=== PATIENT | female | born 1965 | race Caucasian/White ===

== ENCOUNTER 2017-08-09 18:09 | Emergency (ER) | payer OTHER ==
[~2017-08-09] VITALS: Ht 157.5 cm; Wt 76.4 kg
[~2017-08-09 18:09] MED LIST: ACET-8386 PO; CIPR500T4 PO; FOLI5CAP PO; METR500S14 PO; SULF500T6 PO
[2017-08-09 18:13] VITALS: BP 122/89
--- NOTE | 2017-08-09 19:44 | NUR ---
PT TAKEN TO OVERFLOW CHAIR 2.
--- NOTE | 2017-08-09 19:49 | NUR ---
Patient being evaluated by Dr. Jose in overflow chair 2.
--- NOTE | 2017-08-09 19:50 | NUR ---
52Y/F PT. PRESENTS TO ED WITH C/O BILATERAL HAND PAIN X 2 WKS--DENIES INJURY, MILD SWELLING RIGHT HAND, STIFFNESS +2 RADIAL PULSE <3 SEC CAP REFILL. HX--ARTHRITIS, PAIN MANAGEMENT
--- NOTE | 2017-08-09 19:57 | NUR ---
Patient discharged with v/s stable. Written and verbal after care instructions given and explained. Patient alert, oriented and verbalized understanding of instructions. Ambulatory with steady gait. All questions addressed prior to discharge. ID band removed. Patient advised to follow up with PMD. Rx of NAPROSYN 500 MG given. Patient educated on indication of medication including possible reaction and side effects. Opportunity to ask questions provided and answered.
[2017-08-09 19:59] VITALS: BP 122/89
== END 2017-08-09 19:57 | disposition home or self-care (01) ==
LOC: MED 18:09
DX: S63.92XA Sprain of unspecified part of left wrist and hand, initial encounter (principal); S63.91XA Sprain of unspecified part of right wrist and hand, initial encounter; R03.0 Elevated blood-pressure reading, without diagnosis of hypertension; M19.90 Unspecified osteoarthritis, unspecified site; X58.XXXA Exposure to other specified factors, initial encounter; Y93.89 Activity, other specified; Y92.89 Other specified places as the place of occurrence of the external cause; Y99.8 Other external cause status
CPT/HCPCS: 99282